=== PATIENT | female | born 1985 ===

== ENCOUNTER 2021-07-08 16:42 | Inpatient (IN) ==
[2021-07-08] MEDS ORDERED: GLUCAGON 1 MG VIAL IM PRN (19:35)
[2021-07-08] MEDS ORDERED: DEXTROSE 50% 25 GM/50 ML VIAL IV PRN (19:35)
[2021-07-08 20:10] LABS: Basophils % 0.4 % (0.0-0.8); Eosinophils # 0.1 10*3/uL (0.0-0.87); Eosinophils % 1.3 % (0.00-10.9); Hematocrit 30.9 VOL% (35.7-47.0); Hemoglobin 9.2 GM/DL (12.0-16.0); Immature Granulocytes % 0.7 %; Immature Granulocytes Absolute 0.07 #; Lymphocytes # 2.4 10*3/uL (1.4-4.0); Lymphocytes % 23.1 % (21.3-54.2); Mean Corpuscular HGB Conc 29.8 GM/DL (32-36); Mean Corpuscular Volume 93.6 FL (87-102); Mean Platelet Volume 9.5 FL (9.6-12.0); Monocytes % 6.3 % (1.7-12.7); Neutrophils % 68.2 % (38.7-73.9); Platelet Count 619 T/CUMM (130-400); Red Cell Distribution Width 13.7 % (9.3-17.3); White Blood Count 10.4 T/CUMM (4-12)
[2021-07-08] MEDS ORDERED: ENOXAPARIN 40 MG/0.4 ML SYRINGE ONE (20:17)
[2021-07-08 20:37] LABS: Alanine Aminotransferase 28 U/L (13-56); Albumin 1.7 G/DL (3.4-5.0); Alkaline Phosphatase 52 U/L (45-117); Aspartate Amino Transferase 21 U/L (0-37); Bilirubin,Total < 0.39 MG/DL (0.20-1.00); Blood Urea Nitrogen 37 MG/DL (7-18); Calcium 6.7 MG/DL (8.5-10.1); Carbon Dioxide 17 MMOL/L (21-32); Glucose 134 MG/DL (74-106); Osmolality,Calculated 293.1 MOS/KG (273-304); Potassium 4.4 MMOL/L (3.5-5.1); Sodium 142 MMOL/L (136-145); Total Protein 5.8 G/DL (6.4-8.2)
[2021-07-08 20:40] LABS: Estimated Glom Filtration Rate 0 ML/MIN
[2021-07-08] MEDS ORDERED: DEXTROSE 50% 25 GM/50 ML SYRINGE IV PRN (21:30)
[2021-07-08] MEDS: ENOXAPARIN 30 MG/0.3 ML SYRINGE SUBCUT SCH (21:36)
[2021-07-08] MEDS: INSULIN LISPRO 100 UNIT/ML SUBCUT SCH (21:39)
[2021-07-08 22:40] LABS: Bilirubin,Urine Negative (Negative); Blood, Urine Negative (Negative); Glucose,Urine (UA) 150 mg/dL (Negative); Ketones,Urine Negative (Negative); Nitrite,Urine Negative (Negative); Protein,Urine >=500 MG/DL; Urine Appearance CLEAR (Clear); Urine Color Straw (Yellow); Urine Specific Gravity 1.008 (1.001-1.035); Urine Urobilinogen < 2.0 EU/DL (<2.0)
[2021-07-09 05:42] LABS: Basophils % 0.4 % (0.0-0.8); Eosinophils # 0.2 10*3/uL (0.0-0.87); Eosinophils % 2.6 % (0.00-10.9); Immature Granulocytes % 0.6 %; Immature Granulocytes Absolute 0.05 #; Lymphocytes # 2.2 10*3/uL (1.4-4.0); Lymphocytes % 26.5 % (21.3-54.2); Mean Corpuscular HGB Conc 29.9 GM/DL (32-36); Mean Corpuscular Volume 95.8 FL (87-102); Mean Platelet Volume 10.4 FL (9.6-12.0); Monocytes % 6.1 % (1.7-12.7); Neutrophils % 63.8 % (38.7-73.9); Red Cell Distribution Width 13.6 % (9.3-17.3); White Blood Count 8.4 T/CUMM (4-12)
[2021-07-09 05:43] LABS: Hematocrit 25.4 VOL% (35.7-47.0); Hemoglobin 7.6 GM/DL (12.0-16.0); Platelet Count 510 T/CUMM (130-400); Red Blood Count 2.65 MC/CUMM (3.8-5.5)
[2021-07-09 05:44] LABS: Albumin 1.4 G/DL (3.4-5.0); Bilirubin,Total 1.1 MG/DL (0.20-1.00); Calcium 6.4 MG/DL (8.5-10.1); Potassium 4.2 MMOL/L (3.5-5.1); Risk Ratio 2.38; Total Protein 4.7 G/DL (6.4-8.2); VLDL Cholesterol 22.4 MG/DL
[2021-07-09 07:54] LABS: Basophils % 0.4 % (0.0-0.8); Eosinophils # 0.2 10*3/uL (0.0-0.87); Hematocrit 25.8 VOL% (35.7-47.0); Hemoglobin 7.6 GM/DL (12.0-16.0); Immature Granulocytes % 0.4 %; Immature Granulocytes Absolute 0.03 #; Lymphocytes # 2.1 10*3/uL (1.4-4.0); Lymphocytes % 25.8 % (21.3-54.2); Mean Corpuscular HGB Conc 29.5 GM/DL (32-36); Mean Corpuscular Volume 94.9 FL (87-102); Mean Platelet Volume 9.4 FL (9.6-12.0); Monocytes % 6.1 % (1.7-12.7); Neutrophils % 64.3 % (38.7-73.9); Platelet Count 544 T/CUMM (130-400); Red Blood Count 2.72 MC/CUMM (3.8-5.5); Red Cell Distribution Width 13.6 % (9.3-17.3)
[2021-07-09 08:16] LABS: % Iron Saturation 11.2 % (18-50); Ferritin 50.3 ng/mL (8-252)
[2021-07-09 08:19] LABS: Folate 12.78 NG/ML (5.38-24.0); Vitamin B12 289 PG/ML (211-911)
[2021-07-09] MEDS: INSULIN LISPRO 100 UNIT/ML SUBCUT SCH ×4 (08:29→20:50)
[2021-07-09] MEDS: cefTRIAXone 1,000 MG in SODIUM CHLORIDE 0.9% 100 ML IV SCH (08:57)
[2021-07-09 09:07] LABS: Sedimentation Rate-Westergren 74 MM/HR (0-20)
[2021-07-09] MEDS: AZITHROMYCIN INJ 500 MG in SODIUM CHLORIDE 0.9% 250 ML IV SCH (10:12)
[2021-07-09] MEDS: hydrALAZINE 20 MG/1 ML VIAL IV PRN ×2 (10:16→20:51)
[2021-07-09] MEDS: METOPROLOL TARTRATE 50 MG TABLET PO SCH ×2 (13:15→20:50)
[2021-07-09] MEDS ORDERED: GLUCAGON 1 MG VIAL IM PRN (15:43)
[2021-07-09] MEDS ORDERED: DEXTROSE 50% 25 GM/50 ML VIAL IV PRN (15:43)
[2021-07-09] MEDS: ENOXAPARIN 30 MG/0.3 ML SYRINGE SUBCUT SCH (20:49)
[2021-07-09 23:10] LABS: Total Volume,Urine 1000 ML (400-2000)
[2021-07-09 23:24] LABS: Total Protein 24 Hr Ur Result 6510 MG/24HR (0-149.1)
[2021-07-10] MEDS: hydrALAZINE 20 MG/1 ML VIAL IV PRN (04:04)
[2021-07-10] MEDS: METOPROLOL TARTRATE 50 MG TABLET PO SCH ×2 (10:06→20:30)
[2021-07-10] MEDS: INSULIN LISPRO 100 UNIT/ML SUBCUT SCH ×4 (10:06→20:30)
[2021-07-10] MEDS: metOLazone 5 MG TABLET PO SCH (10:06)
[2021-07-10] MEDS: cefTRIAXone 1,000 MG in SODIUM CHLORIDE 0.9% 100 ML IV SCH (10:06)
[2021-07-10] MEDS: AZITHROMYCIN INJ 500 MG in SODIUM CHLORIDE 0.9% 250 ML IV SCH (11:47)
[2021-07-10] MEDS ORDERED: FUROSEMIDE 40 MG/4 ML VIAL IV SCH (16:00)
[2021-07-10] MEDS: FUROSEMIDE INJ 160 MG in SODIUM CHLORIDE 0.9% 50 ML IV SCH (17:31)
[2021-07-10] MEDS: ENOXAPARIN 30 MG/0.3 ML SYRINGE SUBCUT SCH (20:30)
[2021-07-11 06:09] LABS: Basophils % 0.4 % (0.0-0.8); Eosinophils # 0.2 10*3/uL (0.0-0.87); Eosinophils % 2.9 % (0.00-10.9); Hematocrit 27.5 VOL% (35.7-47.0); Hemoglobin 8.1 GM/DL (12.0-16.0); Immature Granulocytes % 0.3 %; Immature Granulocytes Absolute 0.02 #; Lymphocytes # 2.3 10*3/uL (1.4-4.0); Lymphocytes % 31.9 % (21.3-54.2); Mean Corpuscular HGB Conc 29.5 GM/DL (32-36); Mean Corpuscular Volume 96.8 FL (87-102); Mean Platelet Volume 9.6 FL (9.6-12.0); Monocytes % 5.8 % (1.7-12.7); Neutrophils % 58.7 % (38.7-73.9); Platelet Count 601 T/CUMM (130-400); Red Blood Count 2.84 MC/CUMM (3.8-5.5); Red Cell Distribution Width 13.4 % (9.3-17.3); White Blood Count 7.2 T/CUMM (4-12)
[2021-07-11 06:38] LABS: Osmolality,Calculated 287.5 MOS/KG (273-304); Potassium 4.4 MMOL/L (3.5-5.1)
[2021-07-11] MEDS: INSULIN LISPRO 100 UNIT/ML SUBCUT SCH ×4 (08:12→20:07)
[2021-07-11 08:27] LABS: Hemoglobin A1 (Alkaline) 97.4 % (96.5-98.5); Hemoglobin A2 (Alkaline) 2.6 % (1.5-3.5)
[2021-07-11] MEDS: metOLazone 5 MG TABLET PO SCH (08:58)
[2021-07-11] MEDS: METOPROLOL TARTRATE 50 MG TABLET PO SCH ×2 (08:58→21:35)
[2021-07-11] MEDS: cefTRIAXone 1,000 MG in SODIUM CHLORIDE 0.9% 100 ML IV SCH (08:59)
[2021-07-11] MEDS: AZITHROMYCIN INJ 500 MG in SODIUM CHLORIDE 0.9% 250 ML IV SCH ×2 (08:59→11:02)
[2021-07-11] MEDS: hydrALAZINE 20 MG/1 ML VIAL IV PRN ×2 (08:59→16:08)
[2021-07-11] MEDS: FUROSEMIDE INJ 160 MG in SODIUM CHLORIDE 0.9% 50 ML IV SCH ×2 (09:15→16:09)
[2021-07-11] MEDS: FERRIC GLUCONATE COMPLEX 125 MG in SODIUM CHLORIDE 0.9% 100 ML IV SCH (13:00)
[2021-07-11] MEDS: ENOXAPARIN 30 MG/0.3 ML SYRINGE SUBCUT SCH (21:36)
[2021-07-12 05:29] LABS: Basophils # 0.1 10*3/uL (0.0-0.2); Basophils % 0.7 % (0.0-0.8); Eosinophils # 0.1 10*3/uL (0.0-0.87); Eosinophils % 1.9 % (0.00-10.9); Hematocrit 28.4 VOL% (35.7-47.0); Hemoglobin 8.6 GM/DL (12.0-16.0); Immature Granulocytes % 0.8 %; Immature Granulocytes Absolute 0.06 #; Lymphocytes # 1.7 10*3/uL (1.4-4.0); Mean Corpuscular HGB Conc 30.3 GM/DL (32-36); Mean Platelet Volume 9.8 FL (9.6-12.0); Monocytes % 6.4 % (1.7-12.7); Neutrophils % 66.2 % (38.7-73.9); Platelet Count 592 T/CUMM (130-400); Red Blood Count 3.02 MC/CUMM (3.8-5.5); Red Cell Distribution Width 13.3 % (9.3-17.3); White Blood Count 7.2 T/CUMM (4-12)
[2021-07-12 05:34] LABS: Osmolality,Calculated 288.5 MOS/KG (273-304); Potassium 4.2 MMOL/L (3.5-5.1)
[2021-07-12] MEDS: metOLazone 5 MG TABLET PO SCH ×2 (09:37→14:11)
[2021-07-12] MEDS: METOPROLOL TARTRATE 50 MG TABLET PO SCH ×2 (09:37→20:37)
[2021-07-12] MEDS: FERRIC GLUCONATE COMPLEX 125 MG in SODIUM CHLORIDE 0.9% 100 ML IV SCH (09:40)
[2021-07-12] MEDS: cefTRIAXone 1,000 MG in SODIUM CHLORIDE 0.9% 100 ML IV SCH (09:40)
[2021-07-12] MEDS: FUROSEMIDE INJ 160 MG in SODIUM CHLORIDE 0.9% 50 ML IV SCH (09:40)
[2021-07-12] MEDS: INSULIN LISPRO 100 UNIT/ML SUBCUT SCH ×4 (11:08→20:04)
[2021-07-12] MEDS: amLODIPine 10 MG TABLET PO SCH (14:11)
[2021-07-12] MEDS: AZITHROMYCIN INJ 500 MG in SODIUM CHLORIDE 0.9% 250 ML IV SCH (14:11)
[2021-07-12] MEDS: FUROSEMIDE INJ 200 MG in SODIUM CHLORIDE 0.9% 50 ML IV SCH (16:44)
[2021-07-12] MEDS: ENOXAPARIN 30 MG/0.3 ML SYRINGE SUBCUT SCH (20:36)
[2021-07-13 06:12] LABS: Calcium 6.8 MG/DL (8.5-10.1); Osmolality,Calculated 295.3 MOS/KG (273-304); Potassium 4.1 MMOL/L (3.5-5.1)
[2021-07-13] MEDS: INSULIN LISPRO 100 UNIT/ML SUBCUT SCH ×2 (08:16→12:37)
[2021-07-13] MEDS ORDERED: EPOETIN ALFA-EPBX 10,000 UNIT/ML VIAL SUBCUT ONE (08:24)
[2021-07-13 08:50] VITALS: BP 154/91
[2021-07-13] MEDS: METOPROLOL TARTRATE 50 MG TABLET PO SCH (09:55)
[2021-07-13] MEDS: FUROSEMIDE INJ 200 MG in SODIUM CHLORIDE 0.9% 50 ML IV SCH (09:55)
[2021-07-13] MEDS: amLODIPine 10 MG TABLET PO SCH (09:55)
[2021-07-13] MEDS: metOLazone 5 MG TABLET PO SCH (09:55)
[2021-07-13] MEDS: cefTRIAXone 1,000 MG in SODIUM CHLORIDE 0.9% 100 ML IV SCH (10:39)
[2021-07-13] MEDS: FERRIC GLUCONATE COMPLEX 125 MG in SODIUM CHLORIDE 0.9% 100 ML IV SCH (11:14)
[2021-07-13] MEDS: AZITHROMYCIN INJ 500 MG in SODIUM CHLORIDE 0.9% 250 ML IV SCH (11:14)
== END 2021-07-13 12:57 | disposition home or self-care (01) | DRG 682 ==
LOC: N.TELEN 19:04
PROVIDERS: ADMIT Internal Medicine; ATTEND Internal Medicine

== ENCOUNTER 2021-08-30 17:21 | Inpatient (IN) ==
[2021-08-30] MEDS ORDERED: SODIUM CHLORIDE 0.9% 1,000 ML IV PRN (20:23)
[2021-08-30] MEDS ORDERED: hydrALAZINE 20 MG/1 ML VIAL IV PRN (20:24)
[2021-08-30] MEDS ORDERED: ACETAMINOPHEN 325 MG TABLET PO PRN (20:24)
[2021-08-30] MEDS ORDERED: GLUCAGON 1 MG VIAL IM PRN (20:24)
[2021-08-30] MEDS ORDERED: DEXTROSE 10% 250 ML BAG IV PRN (20:24)
[2021-08-30 21:05] LABS: Basophils # 0.1 10*3/uL (0.0-0.2); Basophils % 0.2 % (0.0-0.8); Eosinophils # 0.4 10*3/uL (0.0-0.87); Eosinophils % 1.8 % (0.00-10.9); Hematocrit 22.2 VOL% (35.7-47.0); Hemoglobin 6.9 GM/DL (12.0-16.0); Immature Granulocytes % 2.5 %; Immature Granulocytes Absolute 0.54 #; Lymphocytes # 1.1 10*3/uL (1.4-4.0); Lymphocytes % 5.1 % (21.3-54.2); Mean Corpuscular HGB Conc 31.1 GM/DL (32-36); Mean Corpuscular Volume 89.2 FL (87-102); Mean Platelet Volume 9.7 FL (9.6-12.0); Monocytes % 4.6 % (1.7-12.7); Neutrophils % 85.8 % (38.7-73.9); Platelet Count 421 T/CUMM (130-400); Red Blood Count 2.49 MC/CUMM (3.8-5.5); Red Cell Distribution Width 14.6 % (9.3-17.3); White Blood Count 21.7 T/CUMM (4-12)
[2021-08-30 21:09] LABS: ABG Base Excess -18.2 MMOL/L (-2.5-2.5); ABG HCO3 10.6 MMOL/L (20-26); ABG PH 7.223 (7.35-7.45); ABG PO2 94.8 MM HG (80-95); Allen Test Positive; Pt O2 Delivery Device Other
[2021-08-30 21:29] LABS: Lymphocytes 4 % (20-55); Segmented Neutrophils 95 % (50-85); Total Cells Counted 100
[2021-08-30 21:30] LABS: Platelet Estimate Increased; Polychromasia Few
[2021-08-30 21:31] LABS: Acanthocytes Few
[2021-08-30 21:33] LABS: ABG PCO2 20.3 MM HG (35-48)
[2021-08-30 21:33] LABS: Alanine Aminotransferase 13 U/L (13-56); Albumin 1.2 G/DL (3.4-5.0); Alkaline Phosphatase 155 U/L (45-117); Aspartate Amino Transferase 10 U/L (0-37); Bilirubin,Total < 0.39 MG/DL (0.20-1.00); Blood Urea Nitrogen 183 MG/DL (7-18); Carbon Dioxide 9 MMOL/L (21-32); Estimated Glom Filtration Rate 2 ML/MIN; Glucose 73 MG/DL (74-106); Osmolality,Calculated 327.2 MOS/KG (273-304); Potassium 5.2 MMOL/L (3.5-5.1); Sodium 134 MMOL/L (136-145); Total Protein 6.9 G/DL (6.4-8.2)
[2021-08-30 21:35] LABS: INR 1.2; PT Patient Result 13.5 SECS (10.5-12.0); Partial Thromboplastin Time 48.4 SECS (23.8-32.1)
[2021-08-30 21:41] LABS: Albumin 1.2 G/DL (3.4-5.0); Bilirubin,Direct 0.12 MG/DL (0.0-0.20); Bilirubin,Indirect 0.3 MG/DL (0.0-1.0); Bilirubin,Total 0.4 MG/DL (0.20-1.00); Total Protein 6.7 G/DL (6.4-8.2)
[2021-08-30 21:48] LABS: Osmolality,Calculated 324.2 MOS/KG (273-304); Potassium 5.2 MMOL/L (3.5-5.1)
[2021-08-30] MEDS: SODIUM BICARBONATE 650 MG TABLET PO SCH (23:37)
[2021-08-30] MEDS: PANTOPRAZOLE 40 MG VIAL IV SCH (23:38)
[2021-08-30] MEDS: CLINDAMYCIN INJ 600 MG/50 ML PREMIX IV SCH (23:39)
[2021-08-31] MEDS: INSULIN LISPRO 100 UNIT/ML SUBCUT SCH ×5 (00:05→20:58)
[2021-08-31] MEDS ORDERED: CALCIUM GLUCONATE 2,000 MG in SODIUM CHLORIDE 0.9% 100 ML IV ONE ×2 (01:02→07:01)
[2021-08-31] MEDS ORDERED: SODIUM BICARBONATE 50 MEQ/50 ML VIAL IV ONE (01:03)
[2021-08-31] MEDS ORDERED: SODIUM ZIRCONIUM CYCLOSILICATE 10 GM PACK PO ONE (01:03)
[2021-08-31] MEDS: CLINDAMYCIN INJ 600 MG/50 ML PREMIX IV SCH ×2 (06:40→13:28)
[2021-08-31 08:19] LABS: Basophils # 0.1 10*3/uL (0.0-0.2); Basophils % 0.3 % (0.0-0.8); Eosinophils # 0.3 10*3/uL (0.0-0.87); Eosinophils % 1.5 % (0.00-10.9); Hematocrit 22.4 VOL% (35.7-47.0); Hemoglobin 7.1 GM/DL (12.0-16.0); Immature Granulocytes % 1.9 %; Immature Granulocytes Absolute 0.36 #; Lymphocytes # 0.8 10*3/uL (1.4-4.0); Lymphocytes % 4.5 % (21.3-54.2); Mean Corpuscular HGB Conc 31.7 GM/DL (32-36); Mean Corpuscular Volume 88.5 FL (87-102); Mean Platelet Volume 9.5 FL (9.6-12.0); Monocytes % 5.6 % (1.7-12.7); Neutrophils % 86.2 % (38.7-73.9); Platelet Count 346 T/CUMM (130-400); Red Blood Count 2.53 MC/CUMM (3.8-5.5); Red Cell Distribution Width 15.1 % (9.3-17.3); White Blood Count 18.7 T/CUMM (4-12)
[2021-08-31 08:40] LABS: Hypochromia 1+; Lymphocytes 4 % (20-55); Microcytosis 1+; Platelet Estimate Adequate; Segmented Neutrophils 93 % (50-85); Total Cells Counted 100
[2021-08-31 08:45] LABS: Alanine Aminotransferase < 6 U/L (13-56); Albumin 1.1 G/DL (3.4-5.0); Alkaline Phosphatase 128 U/L (45-117); Aspartate Amino Transferase 12 U/L (0-37); Bilirubin,Total < 0.39 MG/DL (0.20-1.00); Blood Urea Nitrogen 180 MG/DL (7-18); Carbon Dioxide 10 MMOL/L (21-32); Estimated Glom Filtration Rate 2 ML/MIN; Glucose 66 MG/DL (74-106); Osmolality,Calculated 327.1 MOS/KG (273-304); Potassium 4.7 MMOL/L (3.5-5.1); Sodium 135 MMOL/L (136-145); Total Protein 5.9 G/DL (6.4-8.2)
[2021-08-31] MEDS ORDERED: VANCOMYCIN INJ 1,250 MG in SODIUM CHLORIDE 0.9% 250 ML IV PRN ×2 (08:46→10:00)
[2021-08-31 08:48] LABS: % Iron Saturation 35.7 % (18-50); Ferritin 408.4 ng/mL (8-252)
[2021-08-31] MEDS ORDERED: PANTOPRAZOLE 40 MG TABLET PO SCH (09:00)
[2021-08-31] MEDS ORDERED: SODIUM BICARBONATE 650 MG TABLET PO SCH (09:00)
[2021-08-31] MEDS ORDERED: VANCOMYCIN INJ 1,250 MG in SODIUM CHLORIDE 0.9% 250 ML IV ONE (10:00)
[2021-08-31] MEDS: FUROSEMIDE 80 MG TABLET PO SCH ×2 (11:10→20:57)
[2021-08-31] MEDS: FERROUS SULFATE 325 MG TABLET PO SCH (11:10)
[2021-08-31] MEDS: METOPROLOL TARTRATE 50 MG TABLET PO SCH ×2 (11:11→20:58)
[2021-08-31] MEDS: metOLazone 5 MG TABLET PO SCH (11:11)
[2021-08-31] MEDS: amLODIPine 10 MG TABLET PO SCH ×2 (11:11→20:57)
[2021-08-31] MEDS: SODIUM BICARBONATE 650 MG TABLET PO SCH ×3 (11:11→20:58)
[2021-08-31] MEDS ORDERED: propofoL 200 MG/20 ML VIAL IV ONE (11:45)
[2021-08-31] MEDS ORDERED: LIDOCAINE 2% 5 ML VIAL ONE (11:45)
[2021-08-31] MEDS ORDERED: fentaNYL 100 MCG/2 ML VIAL ONE (11:46)
[2021-08-31] MEDS ORDERED: MIDAZOLAM 2 MG/2 ML VIAL ONE (11:46)
[2021-08-31] MEDS ORDERED: LACTATED RINGERS 1,000 ML IV SCH (12:00)
[2021-08-31] MEDS ORDERED: KETAMINE 500 MG/10 ML VIAL ONE (12:03)
[2021-08-31] MEDS ORDERED: HYDROmorphone 2 MG/1 ML VIAL ONE (13:25)
[2021-08-31] MEDS ORDERED: ONDANSETRON 4 MG/2 ML VIAL IV PRN (13:26)
[2021-08-31] MEDS ORDERED: HYDROmorphone 2 MG/1 ML VIAL IV PRN (13:26)
[2021-08-31] MEDS: PANTOPRAZOLE 40 MG VIAL IV SCH ×2 (13:27→20:57)
[2021-08-31] MEDS: ONDANSETRON 4 MG/2 ML VIAL IV PRN (16:01)
[2021-08-31] MEDS: PIPERACILLIN/TAZOBACTAM 3,375 MG in SODIUM CHLORIDE 0.9% 100 ML IV SCH (16:02)
[2021-08-31] MEDS ORDERED: CLINDAMYCIN INJ 900 MG/50 ML PREMIX IV ONE (16:14)
[2021-08-31 17:11] LABS: Hepatitis B Surface Ag Quant < 0.10 Index; Hepatitis B Surface Ag Result Non-Reactive (NonReactive); Hepatitis C Virus Ab Result Non-Reactive (NonReactive)
[2021-08-31] MEDS: FENOFIBRATE 145 MG TABLET PO SCH (20:58)
[2021-09-01] MEDS: PIPERACILLIN/TAZOBACTAM 3,375 MG in SODIUM CHLORIDE 0.9% 100 ML IV SCH ×2 (02:06→15:06)
[2021-09-01 05:38] LABS: Calcium 5.5 MG/DL (8.5-10.1)
[2021-09-01] MEDS ORDERED: CLINDAMYCIN INJ 900 MG/50 ML PREMIX IV ONE (06:00)
[2021-09-01 06:27] LABS: Osmolality,Calculated 330.1 MOS/KG (273-304); Potassium 4.7 MMOL/L (3.5-5.1)
[2021-09-01 06:34] LABS: Calcium 5.5 MG/DL (8.5-10.1)
[2021-09-01] MEDS ORDERED: BUPIVACAINE MPF 0.25% 30 ML VIAL ONE (07:01)
[2021-09-01] MEDS ORDERED: LIDOCAINE 1%/EPI INJ 20 ML VIAL ONE (07:01)
[2021-09-01] MEDS ORDERED: fentaNYL 100 MCG/2 ML VIAL ONE (07:07)
[2021-09-01] MEDS ORDERED: propofoL 200 MG/20 ML VIAL IV ONE (07:07)
[2021-09-01] MEDS ORDERED: LIDOCAINE 2% 5 ML VIAL ONE (07:07)
[2021-09-01] MEDS ORDERED: MIDAZOLAM 2 MG/2 ML VIAL ONE (07:07)
[2021-09-01] MEDS ORDERED: HEPARIN 5,000 UNIT/1 ML VIAL ONE (07:17)
[2021-09-01] MEDS ORDERED: ONDANSETRON 4 MG/2 ML VIAL ONE (07:18)
[2021-09-01] MEDS ORDERED: SODIUM CHLORIDE 0.9% 250 ML IV SCH (07:30)
[2021-09-01] MEDS ORDERED: KETAMINE 500 MG/10 ML VIAL ONE (07:46)
[2021-09-01] MEDS ORDERED: PHENYLEPHRINE 1 MG/10 ML SYRINGE IV ONE (07:52)
[2021-09-01] MEDS ORDERED: ePHEDrine 50 MG/ML VIAL ONE (08:05)
[2021-09-01] MEDS: SODIUM CHLORIDE 0.9% 1,000 ML IV SCH (08:05)
[2021-09-01] MEDS ORDERED: EPINEPHrine 1 MG/ML VIAL ONE (08:08)
[2021-09-01 08:45] LABS: Basophils % 0.2 % (0.0-0.8); Eosinophils # 0.2 10*3/uL (0.0-0.87); Eosinophils % 1.3 % (0.00-10.9); Immature Granulocytes Absolute 0.35 #; Lymphocytes % 5.5 % (21.3-54.2); Mean Corpuscular Volume 90.9 FL (87-102); Mean Platelet Volume 10.2 FL (9.6-12.0); Platelet Count 326 T/CUMM (130-400); Red Cell Distribution Width 14.8 % (9.3-17.3); White Blood Count 17.4 T/CUMM (4-12)
[2021-09-01 08:53] LABS: Hemoglobin 6.2 GM/DL (12.0-16.0)
[2021-09-01] MEDS ORDERED: PROMETHAZINE 25 MG/1 ML VIAL ONE (09:15)
[2021-09-01] MEDS ORDERED: PROMETHAZINE INJ 6.25 MG in SODIUM CHLORIDE 0.9% 50 ML IV ONE (09:22)
[2021-09-01] MEDS ORDERED: VANCOMYCIN INJ 500 MG in SODIUM CHLORIDE 0.9% 100 ML IV PRN (10:00)
[2021-09-01] MEDS ORDERED: HEPARIN 10,000 UNIT/10 ML VIAL IV SCH (10:30)
[2021-09-01] MEDS: METOPROLOL TARTRATE 50 MG TABLET PO SCH ×2 (12:34→20:44)
[2021-09-01] MEDS: FERROUS SULFATE 325 MG TABLET PO SCH (12:34)
[2021-09-01] MEDS: FUROSEMIDE 80 MG TABLET PO SCH ×2 (12:34→20:44)
[2021-09-01] MEDS: SODIUM BICARBONATE 650 MG TABLET PO SCH ×3 (12:34→20:44)
[2021-09-01] MEDS: metOLazone 5 MG TABLET PO SCH (12:34)
[2021-09-01] MEDS: amLODIPine 10 MG TABLET PO SCH ×2 (12:34→20:44)
[2021-09-01] MEDS: PANTOPRAZOLE 40 MG VIAL IV SCH ×2 (12:42→20:44)
[2021-09-01] MEDS: INSULIN LISPRO 100 UNIT/ML SUBCUT SCH ×4 (12:53→21:47)
[2021-09-01] MEDS: ONDANSETRON 4 MG/2 ML VIAL IV PRN ×2 (14:19→17:23)
[2021-09-01] MEDS: MORPHINE 2 MG/1 ML SYRINGE IV PRN (14:41)
[2021-09-01] MEDS ORDERED: SODIUM CHLORIDE 0.9% 1,000 ML IV PRN (15:11)
[2021-09-01] MEDS ORDERED: VANCOMYCIN INJ 500 MG in SODIUM CHLORIDE 0.9% 100 ML IV ONE (17:00)
[2021-09-01] MEDS: FENOFIBRATE 145 MG TABLET PO SCH (20:44)
[2021-09-01] MEDS: PROMETHAZINE INJ 12.5 MG in SODIUM CHLORIDE 0.9% 50 ML IV PRN (21:53)
[2021-09-02] MEDS: PIPERACILLIN/TAZOBACTAM 3,375 MG in SODIUM CHLORIDE 0.9% 100 ML IV SCH ×2 (01:44→15:23)
[2021-09-02 06:00] LABS: Basophils % 0.2 % (0.0-0.8); Eosinophils # 0.5 10*3/uL (0.0-0.87); Hemoglobin 7.6 GM/DL (12.0-16.0); Immature Granulocytes % 1.7 %; Lymphocytes # 1.1 10*3/uL (1.4-4.0); Lymphocytes % 6.2 % (21.3-54.2); Mean Corpuscular HGB Conc 31.7 GM/DL (32-36); Mean Corpuscular Volume 89.6 FL (87-102); Monocytes % 6.2 % (1.7-12.7); Neutrophils % 82.7 % (38.7-73.9); Platelet Count 290 T/CUMM (130-400); Red Blood Count 2.68 MC/CUMM (3.8-5.5); White Blood Count 17.2 T/CUMM (4-12)
[2021-09-02] MEDS: PANTOPRAZOLE 40 MG VIAL IV SCH ×2 (09:05→21:54)
[2021-09-02] MEDS: INSULIN LISPRO 100 UNIT/ML SUBCUT SCH ×4 (09:05→21:57)
[2021-09-02] MEDS: SODIUM BICARBONATE 650 MG TABLET PO SCH ×3 (09:05→21:54)
[2021-09-02] MEDS: METOPROLOL TARTRATE 50 MG TABLET PO SCH ×2 (09:06→21:54)
[2021-09-02] MEDS: FERROUS SULFATE 325 MG TABLET PO SCH (09:06)
[2021-09-02] MEDS: FUROSEMIDE 80 MG TABLET PO SCH ×2 (09:06→21:54)
[2021-09-02] MEDS: metOLazone 5 MG TABLET PO SCH (09:06)
[2021-09-02] MEDS: amLODIPine 10 MG TABLET PO SCH ×2 (09:06→21:54)
[2021-09-02] MEDS: PROMETHAZINE INJ 12.5 MG in SODIUM CHLORIDE 0.9% 50 ML IV PRN (11:49)
[2021-09-02] MEDS: SODIUM CHLORIDE 0.9% 1,000 ML IV SCH (12:56)
[2021-09-02] MEDS: FENOFIBRATE 145 MG TABLET PO SCH (21:56)
[2021-09-03] MEDS: INSULIN LISPRO 100 UNIT/ML SUBCUT SCH ×3 (09:07→16:24)
[2021-09-03] MEDS: SODIUM BICARBONATE 650 MG TABLET PO SCH ×3 (10:39→21:34)
[2021-09-03] MEDS: METOPROLOL TARTRATE 50 MG TABLET PO SCH ×2 (10:41→21:34)
[2021-09-03] MEDS: FUROSEMIDE 80 MG TABLET PO SCH ×2 (10:43→21:34)
[2021-09-03] MEDS: SODIUM CHLORIDE 0.9% 1,000 ML IV SCH (10:59)
[2021-09-03] MEDS: PROMETHAZINE INJ 12.5 MG in SODIUM CHLORIDE 0.9% 50 ML IV PRN (11:30)
[2021-09-03] MEDS: MORPHINE 2 MG/1 ML SYRINGE IV PRN (11:31)
[2021-09-03] MEDS: PANTOPRAZOLE 40 MG VIAL IV SCH ×2 (11:31→21:35)
[2021-09-03] MEDS: metOLazone 5 MG TABLET PO SCH (13:02)
[2021-09-03] MEDS: amLODIPine 10 MG TABLET PO SCH ×2 (13:02→21:34)
[2021-09-03] MEDS: FERROUS SULFATE 325 MG TABLET PO SCH (13:03)
[2021-09-03] MEDS: FENOFIBRATE 145 MG TABLET PO SCH (21:35)
[2021-09-04 05:57] LABS: Basophils # 0.1 10*3/uL (0.0-0.2); Basophils % 0.4 % (0.0-0.8); Eosinophils # 0.6 10*3/uL (0.0-0.87); Eosinophils % 4.9 % (0.00-10.9); Hematocrit 26.2 VOL% (35.7-47.0); Hemoglobin 8.3 GM/DL (12.0-16.0); Immature Granulocytes % 2.3 %; Lymphocytes % 7.6 % (21.3-54.2); Mean Corpuscular HGB Conc 31.7 GM/DL (32-36); Mean Corpuscular Volume 89.4 FL (87-102); Mean Platelet Volume 10.3 FL (9.6-12.0); Monocytes % 8.1 % (1.7-12.7); NRBC # 0.02 10*3/uL; Neutrophils % 76.7 % (38.7-73.9); Platelet Count 298 T/CUMM (130-400); Red Blood Count 2.93 MC/CUMM (3.8-5.5); Red Cell Distribution Width 14.6 % (9.3-17.3); White Blood Count 12.9 T/CUMM (4-12)
[2021-09-04 06:24] LABS: Albumin 1.2 G/DL (3.4-5.0); Calcium 6.1 MG/DL (8.5-10.1); Osmolality,Calculated 289.4 MOS/KG (273-304); Potassium 3.8 MMOL/L (3.5-5.1)
[2021-09-04] MEDS: INSULIN LISPRO 100 UNIT/ML SUBCUT SCH ×5 (06:32→23:18)
[2021-09-04] MEDS: metOLazone 5 MG TABLET PO SCH (09:10)
[2021-09-04] MEDS: SODIUM BICARBONATE 650 MG TABLET PO SCH ×3 (09:10→21:08)
[2021-09-04] MEDS: amLODIPine 10 MG TABLET PO SCH ×2 (09:11→21:09)
[2021-09-04] MEDS: METOPROLOL TARTRATE 50 MG TABLET PO SCH ×2 (09:11→21:09)
[2021-09-04] MEDS: FERROUS SULFATE 325 MG TABLET PO SCH (09:11)
[2021-09-04] MEDS: FUROSEMIDE 80 MG TABLET PO SCH ×2 (09:11→21:08)
[2021-09-04] MEDS: PANTOPRAZOLE 40 MG VIAL IV SCH ×2 (09:14→21:09)
[2021-09-04] MEDS: SODIUM CHLORIDE 0.9% 1,000 ML IV SCH (11:35)
[2021-09-04] MEDS: PIPERACILLIN/TAZOBACTAM 3,375 MG in SODIUM CHLORIDE 0.9% 100 ML IV SCH ×2 (12:48→21:11)
[2021-09-04] MEDS: FENOFIBRATE 145 MG TABLET PO SCH (21:11)
[2021-09-05] MEDS ORDERED: PROMETHAZINE 25 MG/1 ML VIAL ONE (08:58)
[2021-09-05] MEDS ORDERED: SODIUM CHLORIDE 0.9% 100 ML IV ONE (09:16)
[2021-09-05] MEDS: PROMETHAZINE INJ 12.5 MG in SODIUM CHLORIDE 0.9% 50 ML IV PRN (09:35)
[2021-09-05] MEDS: FERROUS SULFATE 325 MG TABLET PO SCH (09:44)
[2021-09-05] MEDS: SODIUM BICARBONATE 650 MG TABLET PO SCH ×3 (09:44→21:32)
[2021-09-05] MEDS: METOPROLOL TARTRATE 50 MG TABLET PO SCH ×2 (09:44→21:32)
[2021-09-05] MEDS: metOLazone 5 MG TABLET PO SCH (09:45)
[2021-09-05] MEDS: amLODIPine 10 MG TABLET PO SCH ×2 (09:47→21:32)
[2021-09-05] MEDS: FUROSEMIDE 80 MG TABLET PO SCH ×2 (09:47→21:32)
[2021-09-05] MEDS: PANTOPRAZOLE 40 MG VIAL IV SCH ×2 (09:51→21:33)
[2021-09-05] MEDS: PIPERACILLIN/TAZOBACTAM 3,375 MG in SODIUM CHLORIDE 0.9% 100 ML IV SCH (11:26)
[2021-09-05] MEDS: INSULIN LISPRO 100 UNIT/ML SUBCUT SCH ×4 (11:35→21:33)
[2021-09-05] MEDS: SODIUM CHLORIDE 0.9% 1,000 ML IV SCH (11:35)
[2021-09-05] MEDS: AMOXICILLIN/CLAV 500 MG TABLET PO SCH ×2 (12:10→23:41)
[2021-09-05] MEDS: HEPARIN 5,000 UNIT/1 ML VIAL SUBCUT SCH ×2 (12:10→21:33)
[2021-09-05] MEDS: FENOFIBRATE 145 MG TABLET PO SCH (21:32)
[2021-09-05] MEDS: ONDANSETRON 4 MG/2 ML VIAL IV PRN (22:30)
[2021-09-06] MEDS: HEPARIN 5,000 UNIT/1 ML VIAL SUBCUT SCH ×3 (03:07→21:53)
[2021-09-06 07:06] LABS: Basophils % 0.4 % (0.0-0.8); Eosinophils # 0.3 10*3/uL (0.0-0.87); Eosinophils % 3.1 % (0.00-10.9); Hematocrit 24.8 VOL% (35.7-47.0); Hemoglobin 7.9 GM/DL (12.0-16.0); Immature Granulocytes % 2.2 %; Immature Granulocytes Absolute 0.24 #; Lymphocytes # 1.1 10*3/uL (1.4-4.0); Lymphocytes % 10.3 % (21.3-54.2); Mean Corpuscular HGB Conc 31.9 GM/DL (32-36); Mean Platelet Volume 10.3 FL (9.6-12.0); Monocytes % 7.7 % (1.7-12.7); Neutrophils % 76.3 % (38.7-73.9); Platelet Count 299 T/CUMM (130-400); Red Blood Count 2.85 MC/CUMM (3.8-5.5); Red Cell Distribution Width 14.2 % (9.3-17.3); White Blood Count 11.1 T/CUMM (4-12)
[2021-09-06 07:30] LABS: Osmolality,Calculated 290.8 MOS/KG (273-304); Potassium 3.1 MMOL/L (3.5-5.1)
[2021-09-06 07:34] LABS: Calcium 5.8 MG/DL (8.5-10.1)
[2021-09-06] MEDS: ONDANSETRON 4 MG/2 ML VIAL IV PRN (09:39)
[2021-09-06] MEDS ORDERED: propofoL 200 MG/20 ML VIAL IV ONE (12:36)
[2021-09-06] MEDS ORDERED: LIDOCAINE 2% 5 ML VIAL ONE (12:36)
[2021-09-06] MEDS ORDERED: POTASSIUM CHLORIDE 20 MEQ TABLET PO ONE (13:30)
[2021-09-06] MEDS: metOLazone 5 MG TABLET PO SCH (14:22)
[2021-09-06] MEDS: AMOXICILLIN/CLAV 500 MG TABLET PO SCH ×2 (14:22→23:10)
[2021-09-06] MEDS: FERROUS SULFATE 325 MG TABLET PO SCH (14:22)
[2021-09-06] MEDS: SODIUM BICARBONATE 650 MG TABLET PO SCH ×3 (14:22→21:52)
[2021-09-06] MEDS: CALCIUM (CARBONATE) 500 MG TABLET PO SCH ×2 (14:23→21:57)
[2021-09-06] MEDS: INSULIN LISPRO 100 UNIT/ML SUBCUT SCH ×3 (17:05→21:53)
[2021-09-06] MEDS: PANTOPRAZOLE 40 MG VIAL IV SCH ×2 (17:06→21:53)
[2021-09-06] MEDS: METOPROLOL TARTRATE 50 MG TABLET PO SCH ×2 (17:06→21:53)
[2021-09-06] MEDS: SODIUM CHLORIDE 0.9% 1,000 ML IV SCH ×2 (17:06)
[2021-09-06] MEDS: FUROSEMIDE 80 MG TABLET PO SCH ×2 (17:06→21:53)
[2021-09-06] MEDS: amLODIPine 10 MG TABLET PO SCH ×2 (17:06→21:52)
[2021-09-06] MEDS: FENOFIBRATE 145 MG TABLET PO SCH (21:52)
[2021-09-07] MEDS: HEPARIN 5,000 UNIT/1 ML VIAL SUBCUT SCH ×2 (03:22→13:16)
[2021-09-07 05:26] LABS: Basophils # 0.1 10*3/uL (0.0-0.2); Basophils % 0.4 % (0.0-0.8); Eosinophils # 0.3 10*3/uL (0.0-0.87); Eosinophils % 2.6 % (0.00-10.9); Hematocrit 24.4 VOL% (35.7-47.0); Immature Granulocytes Absolute 0.24 #; Lymphocytes # 1.2 10*3/uL (1.4-4.0); Lymphocytes % 9.9 % (21.3-54.2); Mean Corpuscular HGB Conc 32.8 GM/DL (32-36); Mean Corpuscular Volume 88.4 FL (87-102); Mean Platelet Volume 10.5 FL (9.6-12.0); Monocytes % 7.6 % (1.7-12.7); Neutrophils % 77.5 % (38.7-73.9); Platelet Count 310 T/CUMM (130-400); Red Blood Count 2.76 MC/CUMM (3.8-5.5); Red Cell Distribution Width 14.2 % (9.3-17.3); White Blood Count 12.2 T/CUMM (4-12)
[2021-09-07 05:57] LABS: Calcium 6.8 MG/DL (8.5-10.1); Osmolality,Calculated 276.1 MOS/KG (273-304); Potassium 3.2 MMOL/L (3.5-5.1)
[2021-09-07] MEDS ORDERED: LIDOCAINE 2% 5 ML VIAL ONE (07:10)
[2021-09-07] MEDS ORDERED: propofoL 200 MG/20 ML VIAL IV ONE ×2 (07:10→08:07)
[2021-09-07] MEDS ORDERED: SODIUM CHLORIDE 0.9% 250 ML IV ONE (08:07)
[2021-09-07] MEDS ORDERED: PROMETHAZINE 25 MG/1 ML VIAL ONE (08:35)
[2021-09-07] MEDS ORDERED: PROMETHAZINE INJ 6.25 MG in SODIUM CHLORIDE 0.9% 50 ML IV PRN (08:39)
[2021-09-07] MEDS: METOPROLOL TARTRATE 50 MG TABLET PO SCH (10:11)
[2021-09-07] MEDS: metOLazone 5 MG TABLET PO SCH (10:11)
[2021-09-07] MEDS: FERROUS SULFATE 325 MG TABLET PO SCH (10:11)
[2021-09-07] MEDS: amLODIPine 10 MG TABLET PO SCH (10:12)
[2021-09-07] MEDS: SODIUM BICARBONATE 650 MG TABLET PO SCH ×2 (10:12→15:03)
[2021-09-07] MEDS: CALCIUM (CARBONATE) 500 MG TABLET PO SCH ×2 (10:12→15:03)
[2021-09-07] MEDS: FUROSEMIDE 80 MG TABLET PO SCH (10:12)
[2021-09-07] MEDS: PANTOPRAZOLE 40 MG VIAL IV SCH (10:12)
[2021-09-07] MEDS: INSULIN LISPRO 100 UNIT/ML SUBCUT SCH ×2 (10:47→12:43)
[2021-09-07] MEDS: SODIUM CHLORIDE 0.9% 1,000 ML IV SCH ×2 (10:48→13:52)
[2021-09-07 11:16] VITALS: BP 111/63
[2021-09-07] MEDS ORDERED: DEXTROSE 10% 25 GM/250 ML BAG IV PRN (13:06)
[2021-09-07] MEDS ORDERED: GLUCAGON 1 MG VIAL IM PRN (13:06)
[2021-09-07] MEDS: AMOXICILLIN/CLAV 500 MG TABLET PO SCH (13:16)
== END 2021-09-07 15:15 | disposition home or self-care (01) | DRG 264 ==
LOC: SUATTDRO 19:33 → N.TELEN 19:33
PROVIDERS: ADMIT Internal Medicine; ATTEND Internal Medicine